=== PATIENT | male | born 1985 | race Caucasian/White ===

== ENCOUNTER 2017-12-03 10:16 | Emergency (ER) | payer SELFPAY ==
[~2017-12-03] VITALS: Ht 177.8 cm; Wt 79.0 kg
[2017-12-03] MEDS ORDERED: SODIUM CHLORIDE 0.9% 1,000 ML IV ONE (11:24)
[2017-12-03] MEDS ORDERED: LORAZEPAM 2MG/ML CPJ IV ONE (11:30)
[2017-12-03] MEDS ORDERED: VALPROATE SODIUM 1,000 MG in DEXT 5% WATER 100 ML IV ONE (11:30)
[2017-12-03 14:40] VITALS: BP 125/66
== END 2017-12-03 14:41 | disposition home or self-care (01) ==
LOC: ER 10:41
DX: G40.909 Epilepsy, unspecified, not intractable, without status epilepticus (principal); F11.10 Opioid abuse, uncomplicated; Z91.14 Patient's other noncompliance with medication regimen
CPT/HCPCS: 96365; 96375; 99284; J2060; J3490; J7030; Z7610; J7060